=== PATIENT | male | born 1985 | race Caucasian/White ===

== ENCOUNTER 2025-02-24 18:16 | Emergency (ER) | payer SELFPAY ==
[2025-02-24 18:19] VITALS: BP 131/84
--- NOTE | 2025-02-24 18:40 | ED.SKININJ ---
HPI-Injury
General
Chief Complaint: Bite
Time Seen by Provider: 02/24/25 18:23
History of Present Illness-Injury
Initial Injury comments:
39-year-old male presents to the emergency department for evaluation of a tick bite to the right posterior knee. He removed the tick today, provides the tick in a sealed container on arrival. Does appear to be a small lymph however potentially
engorged. Took Benadryl due to itching at the site which is now improved.
Review of Systems
Review of Systems
Allergies reviewed?: Yes
All Other Systems: ROS reviewed and negative except as documented in HPI and ROS
Phy Exam
Physical Exam
Physical Exam:
GEN: Well appearing, NAD, WDWN
HEENT: Oral mucosa moist, no scleral icterus
Cardiac: Regular rate
Lung: No respiratory distress, no tachypnea
MSK: No gross deformity or injuries
Skin: Good color, no pallor or jaundice, no rashes
Neuro: AO x3, moves all extremities freely
Psych: Calm, cooperative
Course
Orders/Labs/Results
Orders:
Orders
02/24/25 18:39
Doxycycline [Vibramycin] 200 mg PO NOW STA
Vital Signs
Initial and Last Documented VS:
Initial Vital Signs
Temp Pulse Resp BP Pulse Ox
97.7 F 60 16 131/84 98
02/24/25 18:19 02/24/25 18:19 02/24/25 18:19 02/24/25 18:19 02/24/25 18:19
Last Documented Vital Signs
Temp Pulse Resp BP Pulse Ox
97.7 F 60 16 131/84 98
02/24/25 18:19 02/24/25 18:19 02/24/25 18:19 02/24/25 18:19 02/24/25 18:19
MDM/Problems Addressed
MDM/Problems Addressed:
Single dose of doxycycline at 200 mg is adequate for Lyme prevention and thus is given in the emergency department
*Critical Care Note
Total Time (30-74mins, 75-104mins- exclusive of procedures): Not Applicable
ED Attending Note
-
Portions of this chart may have been created with voice recognition software.� Occasional wrong word or��sound alike� substitutions may have occurred due to the inherent limitations of voice recognition software.
Discharge Plan
Departure
Patient Disposition: Home (Routine Discharge)
Date of Disposition: 02/24/25
Time of Disposition: 18:40
Patient with high blood pressure during this ER visit?: No
Discharge Problem:
Tick bite
Instructions: Insect bites and stings
Activity Restrictions/Additional Instructions:
If you develop significant redness and swelling at the site within the next 3 to 4 days this could indicate a skin infection that would require antibiotics
If you develop a bull's-eye type rash on the body within the next 2 weeks this could indicate Lyme disease however the dose of antibiotic given to you tonight is typically highly effective in preventing Lyme
Interventions
Interventions:
*Nursing Disposition Last Done: 02/24/25 19:02
Discharge Date and Time
Discharge Date/Time: 02/24/25 19:04
Print Language: TOGOLESE
[2025-02-24] MEDS: VIBRAMYCIN 200 MG PO (18:59)
== END 2025-02-24 19:04 | disposition home or self-care (01) ==
LOC: EMR 18:16
PROVIDERS: EMERGENCY PHYSICIAN Emergency Medicine
DX: S80.261A Insect bite (nonvenomous), right knee, initial encounter (principal); W57.XXXA Bitten or stung by nonvenomous insect and other nonvenomous arthropods, initial encounter
CPT/HCPCS: 99283